=== PATIENT | male | born 1955 | race Caucasian/White ===

== ENCOUNTER 2022-10-02 02:26 | Outpatient (CLI) | payer MEDICARE, SELFPAY ==
[2022-10-02 14:08] LABS: Anion Gap 7.3 mmol/L (3-11); BUN 25 mg/dL (7-18); CO2 28.7 mmol/L (21.0-32.0); CREATININE 1.3 mg/dL (0.70-1.30); Calcium 8.7 mg/dL (8.5-10.1); Calculated LDL 154 mg/dL (<100); Chloride 108 mmol/L (98-107); Cholesterol 240 mg/dL (<200); Estimated GFR 60.59 (mL/min/1.73m2); Glucose 88 mg/dL (74-106); HDL Cholesterol 76 mg/dL (40-60); Potassium 4.6 mmol/L (3.5-5.1); Sodium 144 mmol/L (136-145); Triglyceride 52 mg/dL (<150)
== END 2022-10-02 02:27 | disposition home or self-care (01) ==
PROVIDERS: Visit Provider Internal Medicine
DX: Z00.00 Encounter for general adult medical examination without abnormal findings (principal)
CPT/HCPCS: 36415; 80048; 80061